=== PATIENT | male | born 1960 | race Caucasian/White ===

== ENCOUNTER 2021-05-24 17:30 | Inpatient (IN) | payer MEDICARE ==
[~2021-05-24] VITALS: Ht 172.7 cm; Wt 75.0 kg
[2021-05-24 17:15] VITALS: BP 129/59
[2021-05-24] MEDS ORDERED: CALCIUM CARBONATE 500 MG TAB.CHEW PO PRN (18:15)
[2021-05-24] MEDS ORDERED: ZOLPIDEM 5 MG TABLET. PO PRN (18:15)
[2021-05-24] MEDS ORDERED: ELECTROLYTE (NON-ICU) PROTOCOL. MC PRN (18:15)
[2021-05-24] MEDS ORDERED: PROCHLORPERAZINE 10 MG/2 ML VIAL. IVP PRN (18:15)
[2021-05-24] MEDS ORDERED: MORPHINE SULFATE 2 MG/ML INJ. IV PRN (18:15)
[2021-05-24] MEDS ORDERED: ACETAMINOPHEN 325 MG TABLET. PO PRN (18:15)
--- NOTE | 2021-05-24 18:40 | PDOC1 ---
History and Physical Date of Service: DOS: DATE: 05/24/21 TIME: 18:18 Chief Complaint: Problems: (1) SBO (small bowel obstruction) Chief Complain: Abdominal pain History of Present Illness: HPI: Patient 60-year-old white male presented center emergency room today due to abdominal pain and nausea vomiting for 3 days. Patient has a colostomy in place due to history of colorectal cancer status post colectomy reports has not had any ostomy output since Saturday. Has had worsening pain and distention. Patient does not recall any obstructions he has had to be hospitalized for, says every time he suspect he may have one it passes on its own. Regards to cancer history patient has not been on chemotherapy since 2018. Last radiation was June 2020. Has followed up at [facility] for surgery and oncology, interested in transferring care somewhere else. The outside emergency department today CT scan performed showed small bowel obstruction and transition point in the distal ileum. Suspect there is a nodule in the pelvic sidewall compressing the terminal ileum causing obstruction. CT scan also has handful of nodules throughout the patient is well aware of. When seen at bedside patient treatment says abdominal pain well controlled. Denies headache, dizziness, fever, chest pain, shortness of breath, dysuria, joint pain. Past Medical/Surgical History: PMH/PSH: Colorectal cancer Family History: Family History: Noncontributory Social History: Social History: Active smoker, occasional alcohol use marijuana use Current Medications: Current Medications Current Medications Ondansetron HCl (Zofran) 4 mg PRN Q6HRS PRN IVP NAUSEA/VOMITING; Start 05/24/21 at 18:15; Status UNV Prochlorperazine Edisylate (Compazine) 10 mg PRN Q6HRS PRN IVP NAUSEA/VOMITING; Start 05/24/21 at 18:15; Status UNV Calcium Carbonate/ Glycine (Tums) 500 mg PRN Q3HRS PRN PO UPSET STOMACH; Start 05/24/21 at 18:15; Status UNV Zolpidem Tartrate (Ambien) 5 mg PRN QHS PRN PO INSOMNIA, MAY REPEAT IN 1HR; Start 05/24/21 at 18:15; Status UNV Info (Non-Icu Electrolyte Protocol) 1 ea PRN DAILY PRN MC SEE COMMENTS; Start 05/24/21 at 18:15; Status UNV Morphine Sulfate (Morphine Sulfate) 1 mg PRN Q1HR PRN IV PAIN; Start 05/24/21 at 18:15; Status UNV Morphine Sulfate (Morphine Sulfate) 2 mg PRN Q1HR PRN IV PAIN; Start 05/24/21 at 18:15; Status UNV Acetaminophen (Tylenol) 650 mg PRN Q6HRS PRN PO Headaches, Temp > 101.5F; Start 05/24/21 at 18:15; Status UNV Senna/Docusate Sodium (Senna Plus) 1 tab BID PO ; Start 05/24/21 at 21:00; Status UNV Heparin Sodium (Porcine) (Heparin Sodium) 5,000 unit Q8HRS SQ ; Start 05/24/21 at 22:00; Status UNV ROS: Review of Systems Review of System Negative unless noted in HPI Physical Exam: Physcial Exam: GEN: No apparent distress. Alert and oriented HEENT: Normal cephalic, atraumatic, external auditory canals are patent EYES: Extraocular muscles are intact, pupil are equally round and reactive to light and accommodation MUSCULOSKELETAL: Well developed , well nourished, good range of motion ENDOCRINE: No thyromegaly was palpated LYMPHATICS: No cervical chain or axillary nodes were noted HEMATOPOIETIC: No bruising NECK: Supple, no JVD, no thyromegaly was noted LUNGS: Clear to auscultation in all lung hunter without rhonchi or wheezing HEART: RRR, S!, S2 present. Peripheral pulses intact, no obvious murmurs noted ABDOMEN: Ostomy present left lower quadrant with very minimal output if any. Tender throughout. Some distention. EXTREMITIES: Without clubbing, cyanosis, or edema. Pedal pulses intact. NEUROLOGIC: Normal speech and tone. A&O x 3, moves all extremities, no obvious focal deficits PSYCHIATRIC: Normal affect, normal mood. Stable SKIN: No ulcerations or rashes, good skin turgor, no jaundice VASCULAR: Good capillary refill, neurovascular bundle appears to be intact Labs: Labs: Labs from outside hospital reviewed. Notable for leukocytosis to 11.1, platelets 471. Creatinine of 1.5. Hypokalemia. Negative Alan rapid and PCR. Assessment/Plan Assessment/Plan Small bowel obstruction, history of colorectal cancer -Patient reports not eating any solid food for the past 3 days. No ostomy output since last Saturday. -History of colorectal cancer status post colostomy. Not currently on active chemo or radiation. -CT scan at outside hospital shows a nodule compressing the terminal ileum causing obstruction -NPO. Conservative with ice chips. -General surgery consulted -will hold off on oncology consultation for the moment until evaluated by surgery -Repeat labs ordered -IV fluids -DVT prophylaxis Justifications for Admission Other Justification JEAN BLAKELY MD May 24, 2021 18:40
[2021-05-24] MEDS ORDERED: IV NORMAL SALINE 1000ML BAG 1,000 ML IV ONE (18:45)
[2021-05-24 18:57] LABS: BASO % 1 % (0-3); EOS # 0.2 x10^3/uL (0.0-0.7); EOS % 3 % (0-3); HEMATOCRIT 42.5 % (39.0-53.0); HEMOGLOBIN 14.3 g/dL (13.0-17.5); LYMPH # 1.1 x10^3/uL (1.0-4.8); LYMPH % 13 % (24-48); MEAN CORPUSCULAR HEMOGLOBIN 32 pg (25-35); MEAN CORPUSCULAR HGB CONC 34 g/dL (31-37); MEAN CORPUSCULAR VOLUME 95 fL (79-100); MONO # 0.9 x10^3/uL (0.0-1.1); MONO % 11 % (0-9); NEUT # 6.3 x10^3/uL (1.8-7.7); NEUT % 74 % (31-73); PLATELET COUNT 345 x10^3/uL (140-400); RED BLOOD COUNT 4.47 x10^6/uL (4.30-5.70); WHITE BLOOD COUNT 8.5 x10^3/uL (4.0-11.0)
[2021-05-24 19:00] VITALS: BP 127/51
[2021-05-24 19:14] LABS: ALBUMIN 3.1 g/dL (3.4-5.0); ALBUMIN/GLOBULIN RATIO 0.8 (1.0-1.7); CALCIUM 8.4 mg/dL (8.5-10.1); CREATININE 1.3 mg/dL (0.7-1.3); GFR 56.5; POTASSIUM 3.8 mmol/L (3.5-5.1); TOTAL BILIRUBIN 0.6 mg/dL (0.2-1.0); TOTAL PROTEIN 6.8 g/dL (6.4-8.2)
[2021-05-24] MEDS: SENNOSIDES/DOCUSATE 8.6/50MG TABLET. PO SCH (21:00)
[2021-05-24] MEDS: HEPARIN for SUB-Q USE 5,000 UNIT/ML VIAL. SQ SCH (21:46)
[2021-05-24] MEDS: MORPHINE SULFATE 2 MG/ML INJ. IV PRN (21:48)
[2021-05-24] MEDS: ONDANSETRON PF 4 MG/2 ML VIAL. IVP PRN (21:48)
[2021-05-24 23:00] VITALS: BP 141/70
[2021-05-25 03:00] VITALS: BP 141/67
[2021-05-25] MEDS: HEPARIN for SUB-Q USE 5,000 UNIT/ML VIAL. SQ SCH ×3 (06:00→21:17)
[2021-05-25 07:00] VITALS: BP 149/73
[2021-05-25] MEDS: SENNOSIDES/DOCUSATE 8.6/50MG TABLET. PO SCH ×2 (07:31→21:17)
[2021-05-25 08:31] LABS: BILIRUBIN,URINE SMALL (NEG); CLARITY,URINE CLOUDY; COLOR,URINE YELLOW; NITRITE,URINE NEGATIVE (NEG); PH,URINE 6.5 (<5.0-8.0); PROTEIN,URINE 30 mg/dL (NEG-TRACE); UROBILINOGEN,URINE 0.2 mg/dL (0.2 mg/dL)
[2021-05-25] MEDS: MORPHINE SULFATE 2 MG/ML INJ. IV PRN (08:35)
[2021-05-25 08:46] LABS: RBC,URINE TNTC /HPF (0-2)
[2021-05-25 08:48] LABS: BACTERIA,URINE MODERATE /HPF (0-FEW)
--- NOTE | 2021-05-25 10:19 | NUR ---
[facility] following. Discussed with RN, pt from home with , room air, NPO. Surgery following. Pt has colorectal cancer. RN advised no SW needs at this time. [facility] will continue to follow. Addendum: 05/25/21 at [address] Mac contacted [facility] to request an inpatient transfer to for colorectal surgery and Urology. [facility] initiated transfer, faxed requested records and had images clouded from [facility]. Awaiting acceptance decision. Addendum: 05/25/21 at 1500 by ANTONIO KEMP declined to accept pt, stating pt needs to go to [facility] where he had the previous surgery. Dr. Mac notified.
[2021-05-25 11:00] VITALS: BP 153/59
--- NOTE | 2021-05-25 11:16 | PDOC ---
[employer] PROGRESS NOTE Date of Service DOS: DATE: 05/25/21 TIME: 11:13 Chief Complaint Chief Complaint Abdominal pain History of Present Illness History of Present Illness Patient 60-year-old white male presented center emergency room today due to abdominal pain and nausea vomiting for 3 days. Patient has a colostomy in place due to history of colorectal cancer status post colectomy reports has not had any ostomy output since Saturday. Has had worsening pain and distention. Patient does not recall any obstructions he has had to be hospitalized for, says every time he suspect he may have one it passes on its own. Regards to cancer history patient has not been on chemotherapy since 2018. Last radiation was June 2020. Has followed up at [facility] for surgery and oncology, interested in transferring care somewhere else. The outside emergency department today CT scan performed showed small bowel obstruction and transition point in the distal ileum. Suspect there is a nodule in the pelvic sidewall compressing the terminal ileum causing obstruction. CT scan also has handful of nodules throughout the patient is well aware of. When seen at bedside patient treatment says abdominal pain well controlled. Denies headache, dizziness, fever, chest pain, shortness of breath, dysuria, joint pain 05/25 Patient evaluated at bedside. Still with minimal ostomy output. Pain controlled. Surgery evaluation pending. No changews otherwise. Vitals/I&O Vitals/I&O: Vital Signs Date Time Temp Pulse Resp B/P (MAP) Pulse Ox O2 Delivery O2 Flow Rate FiO2 05/25/21 08:00 Room Air 05/25/21 07:00 97.5 47 18 149/73 (98) 96 97.5 I & O 05/24/21 05/24/21 05/25/21 15:00 23:00 07:00 Intake Total 60 ml 60 ml Balance 60 ml 60 ml Physical Exam General: Alert, Oriented X3, Cooperative Heart: Regular rate, Normal S1, Normal S2 Lungs: Clear Abdomen: Other (Diffusely tender, ostomy present in left lower quadrant) Extremities: No edema, Normal pulses Skin: No significant lesion Labs Labs: Laboratory Tests Test 05/24/21 18:40 05/25/21 07:45 White Blood Count 8.5 x10^3/uL (4.0-11.0) Red Blood Count 4.47 x10^6/uL (4.30-5.70) Hemoglobin 14.3 g/dL (13.0-17.5) Hematocrit 42.5 % (39.0-53.0) Mean Corpuscular Volume 95 fL (79-100) Mean Corpuscular Hemoglobin 32 pg (25-35) Mean Corpuscular Hemoglobin Concent 34 g/dL (31-37) Red Cell Distribution Width 14.0 % (11.5-14.5) Platelet Count 345 x10^3/uL (140-400) Neutrophils (%) (Auto) 74 % (31-73) Lymphocytes (%) (Auto) 13 % (24-48) Monocytes (%) (Auto) 11 % (0-9) Eosinophils (%) (Auto) 3 % (0-3) Basophils (%) (Auto) 1 % (0-3) Neutrophils # (Auto) 6.3 x10^3/uL (1.8-7.7) Lymphocytes # (Auto) 1.1 x10^3/uL (1.0-4.8) Monocytes # (Auto) 0.9 x10^3/uL (0.0-1.1) Eosinophils # (Auto) 0.2 x10^3/uL (0.0-0.7) Basophils # (Auto) 0.0 x10^3/uL (0.0-0.2) Sodium Level 139 mmol/L (136-145) Potassium Level 3.8 mmol/L (3.5-5.1) Chloride Level 101 mmol/L (98-107) Carbon Dioxide Level 31 mmol/L (21-32) Anion Gap 7 (6-14) Blood Urea Nitrogen 21 mg/dL (8-26) Creatinine 1.3 mg/dL (0.7-1.3) Estimated GFR (Cockcroft-Gault) 56.5 BUN/Creatinine Ratio 16 (6-20) Glucose Level 81 mg/dL (70-99) Lactic Acid Level 1.4 mmol/L (0.4-2.0) Calcium Level 8.4 mg/dL (8.5-10.1) Total Bilirubin 0.6 mg/dL (0.2-1.0) Aspartate Amino Transf (AST/SGOT) 18 U/L (15-37) Alanine Aminotransferase (ALT/SGPT) 22 U/L (16-63) Alkaline Phosphatase 77 U/L (46-116) Total Protein 6.8 g/dL (6.4-8.2) Albumin 3.1 g/dL (3.4-5.0) Albumin/Globulin Ratio 0.8 (1.0-1.7) Urine Collection Type Unknown Urine Color Yellow Urine Clarity Cloudy Urine pH 6.5 (<5.0-8.0) Urine Specific [place] 1.020 (1.000-1.030) Urine Protein 30 mg/dL (NEG-TRACE) Urine Glucose (UA) Negative mg/dL (NEG) Urine Ketones (Stick) >=80 mg/dL (NEG) Urine Blood Large (NEG) Urine Nitrite Negative (NEG) Urine Bilirubin Small (NEG) Urine Urobilinogen Dipstick 0.2 mg/dL (0.2 mg/dL) Urine Leukocyte Esterase Moderate (NEG) Urine RBC Tntc /HPF (0-2) Urine WBC 11-20 /HPF (0-4) Urine Bacteria Moderate /HPF (0-FEW) Urine Mucus Slight /LPF Assessment and Plan Assessmemt and Plan Small bowel obstruction, history of colorectal cancer -Patient reports not eating any solid food for the past 3 days. No ostomy output since last Saturday. -History of colorectal cancer status post colostomy. Not currently on active chemo or radiation. -CT scan at outside hospital shows a nodule compressing the terminal ileum causing obstruction -NPO. Conservative with ice chips. -General surgery consulted -will hold off on oncology consultation for the moment until evaluated by surgery -IV fluids -DVT prophylaxis Comment Review of Relevant I have reviewed the following items nori (where applicable) has been applied. Medications: Current Medications Medications (Trade) Dose Ordered Sig/Anne Route PRN Reason Start Time Stop Time Status Last Admin Dose Admin Ondansetron HCl (Zofran) 4 mg PRN Q6HRS PRN IVP NAUSEA/VOMITING 1ST CHOICE 05/24/21 18:15 05/24/21 21:48 Morphine Sulfate (Morphine Sulfate) 2 mg PRN Q1HR PRN IV SEVERE PAIN 7-10 05/24/21 18:15 05/25/21 08:35 Heparin Sodium (Porcine) (Heparin Sodium) 5,000 unit Q8HRS SQ 05/24/21 22:00 05/24/21 21:46 Sodium Chloride 1,000 ml @ 100 mls/hr 1X ONCE IV 05/24/21 18:45 05/25/21 04:44 DC 05/24/21 21:41 Justifications for Admission Other Justification JEAN BLAKELY MD May 25, 2021 11:16
--- NOTE | 2021-05-25 12:48 | PDOC2 ---
CONSULT Date of Consult Date of Consult DATE: 05/25/21 TIME: 12:39 History of Present Illness Reason for Visit: The patient is a 60 year old male with a complicated past surgical history. He states that in 2019 he underwent surgery at [facility] for colorectal cancer. At that time he was given a permanent colostomy. He reports that the surgery took over 9 hours and was complicated by a bladder injury which he states could not b e repaired. His recent follow up with his Oncologist at [facility] earlier this year showed concern for metastatic disease in the lungs. Over the last week the patient has been experiencing pain the left abdomen with recurrent vomiting and decreased ostomy output. He reported to [facility] and a CT described a small bowel obstruction with suspected metastatic implant in the left abdomen causing the obstruction. The CT also describes extensive soft tissue thickening in the perirectal region concerning for recurrent disease, numerous enlarged mesenteric lymph nodes, and left lower lobe pulmonary nodules that are concerning for metastatic disease. Past Medical History Past Medical History colorectal cancer Past Surgical History Past Surgical History Colorectal resection with colostomy Current Medications Current Medications Current Medications Ondansetron HCl (Zofran) 4 mg PRN Q6HRS PRN IVP NAUSEA/VOMITING 1ST CHOICE Last administered on 05/24/21at 21:48; Start 05/24/21 at 18:15 Prochlorperazine Edisylate (Compazine) 10 mg PRN Q6HRS PRN IVP NAUSEA/VOMITING 2ND CHOICE; Start 05/24/21 at 18:15 Calcium Carbonate/ Glycine (Tums) 500 mg PRN Q3HRS PRN PO UPSET STOMACH; Start 05/24/21 at 18:15 Zolpidem Tartrate (Ambien) 5 mg PRN QHS PRN PO INSOMNIA, MAY REPEAT IN 1HR; Start 05/24/21 at 18:15 Info (Non-Icu Electrolyte Protocol) 1 ea PRN DAILY PRN MC SEE COMMENTS; Start 05/24/21 at 18:15 Morphine Sulfate (Morphine Sulfate) 1 mg PRN Q1HR PRN IV MODERATE PAIN 4-6; Start 05/24/21 at 18:15 Morphine Sulfate (Morphine Sulfate) 2 mg PRN Q1HR PRN IV SEVERE PAIN 7-10 Last administered on 05/25/21at 08:35; Start 05/24/21 at 18:15 Acetaminophen (Tylenol) 650 mg PRN Q6HRS PRN PO Headaches, Temp > 101.5F; Start 05/24/21 at 18:15 Senna/Docusate Sodium (Senna Plus) 1 tab BID PO ; Start 05/24/21 at 21:00 Heparin Sodium (Porcine) (Heparin Sodium) 5,000 unit Q8HRS SQ Last administered on 05/24/21at 21:46; Start 05/24/21 at 22:00 Sodium Chloride 1,000 ml @ 100 mls/hr 1X ONCE IV Last administered on 05/24/21at 21:41; Start 05/24/21 at 18:45; Stop 05/25/21 at 04:44; Status DC Allergies Allergies: Coded Allergies: tree nut (Verified Allergy, Severe, 05/24/21) Penicillins (Verified Allergy, Intermediate, 05/24/21) ROS General: No: Chills, Night Sweats, Fatigue, Malaise, Appetite, Other PSYCHOLOGICAL ROS: No: Anxiety, Behavioral Disorder, Concentration difficultie, Decreased libido, Depression, Disorientation, Hallucinations, Hostility, Irrit ablity, Memory difficulties, Mood Swings, Obsessive thoughts, Physical abuse, Sexual abuse, Sleep disturbances, Suicidal ideation, Other HEENT: No: Heacaches, Visual Changes, Hearing change, Nasal congestion, Nasal discharge, Oral lesions, Sinus pain, Sore Throat, Epistaxis, Sneezing, Snoring, Tinnitus, Vertigo, Vocal changes, Other Hematological and Lymphatic: No: Bleeding Problems, Blood Clots, Blood Transfusions, Brusing, Night Sweats, Pallor, Swollen Lymph Nodes, Other ENDOCRINE: No: Breast Changes, Galactorrhea, Hair Pattern Changes, Hot Flashes, Malaise/lethargy, Mood Swings, Palpitations, Polydipsia/polyuria, Skin Changes, Temperature Intolerance, Unexpected Weight Changes, Other Cardiovascular: No Chest Pain, No Palpitations, No Orthopnea, No Paroxysmal Noc. Dyspnea, No Edema, No Lt Headedness, No Other Gastrointestinal: Yes Vomiting, Yes Abdominal Pain Neurological: No Behavorial Changes, No Bowel/Bladder ControlChng, No Confusion, No Dizziness, No Gait Disturbance, No Headaches, No Impaired Coord/balance, No Memory Loss, No Numbness/Tingling, No Seizures, No Speech Problems, No Tremors, No Visual Changes, No Weakness, No Other Skin: No Dry Skin, No Eczema, No Hair Changes, No Lumps, No Mole Changes, No M ottling, No Nail Changes, No Pruritus, No Rash, No Skin Lesion Changes, No Other, No Acne Physical Exam General: Alert, Oriented X3, Cooperative HEENT: Atraumatic Lungs: Clear to auscultation Abdomen: Soft (ostomy present in left abdomen) Extremities: No clubbing, No cyanosis Skin: No rashes Neuro: Normal speech Psych/Mental Status: Mental status NL Vitals VITALS Vital Signs Date Time Temp Pulse Resp B/P (MAP) Pulse Ox O2 Delivery O2 Flow Rate FiO2 05/25/21 11:00 97.6 51 18 153/59 (90) 96 Room Air 97.6 Labs Labs Laboratory Tests Test 05/24/21 18:40 05/25/21 07:45 White Blood Count 8.5 x10^3/uL (4.0-11.0) Red Blood Count 4.47 x10^6/uL (4.30-5.70) Hemoglobin 14.3 g/dL (13.0-17.5) Hematocrit 42.5 % (39.0-53.0) Mean Corpuscular Volume 95 fL (79-100) Mean Corpuscular Hemoglobin 32 pg (25-35) Mean Corpuscular Hemoglobin Concent 34 g/dL (31-37) Red Cell Distribution Width 14.0 % (11.5-14.5) Platelet Count 345 x10^3/uL (140-400) Neutrophils (%) (Auto) 74 % (31-73) Lymphocytes (%) (Auto) 13 % (24-48) Monocytes (%) (Auto) 11 % (0-9) Eosinophils (%) (Auto) 3 % (0-3) Basophils (%) (Auto) 1 % (0-3) Neutrophils # (Auto) 6.3 x10^3/uL (1.8-7.7) Lymphocytes # (Auto) 1.1 x10^3/uL (1.0-4.8) Monocytes # (Auto) 0.9 x10^3/uL (0.0-1.1) Eosinophils # (Auto) 0.2 x10^3/uL (0.0-0.7) Basophils # (Auto) 0.0 x10^3/uL (0.0-0.2) Sodium Level 139 mmol/L (136-145) Potassium Level 3.8 mmol/L (3.5-5.1) Chloride Level 101 mmol/L (98-107) Carbon Dioxide Level 31 mmol/L (21-32) Anion Gap 7 (6-14) Blood Urea Nitrogen 21 mg/dL (8-26) Creatinine 1.3 mg/dL (0.7-1.3) Estimated GFR (Cockcroft-Gault) 56.5 BUN/Creatinine Ratio 16 (6-20) Glucose Level 81 mg/dL (70-99) Lactic Acid Level 1.4 mmol/L (0.4-2.0) Calcium Level 8.4 mg/dL (8.5-10.1) Total Bilirubin 0.6 mg/dL (0.2-1.0) Aspartate Amino Transf (AST/SGOT) 18 U/L (15-37) Alanine Aminotransferase (ALT/SGPT) 22 U/L (16-63) Alkaline Phosphatase 77 U/L (46-116) Total Protein 6.8 g/dL (6.4-8.2) Albumin 3.1 g/dL (3.4-5.0) Albumin/Globulin Ratio 0.8 (1.0-1.7) Urine Collection Type Unknown Urine Color Yellow Urine Clarity Cloudy Urine pH 6.5 (<5.0-8.0) Urine Specific [employer] 1.020 (1.000-1.030) Urine Protein 30 mg/dL (NEG-TRACE) Urine Glucose (UA) Negative mg/dL (NEG) Urine Ketones (Stick) >=80 mg/dL (NEG) Urine Blood Large (NEG) Urine Nitrite Negative (NEG) Urine Bilirubin Small (NEG) Urine Urobilinogen Dipstick 0.2 mg/dL (0.2 mg/dL) Urine Leukocyte Esterase Moderate (NEG) Urine RBC Tntc /HPF (0-2) Urine WBC 11-20 /HPF (0-4) Urine Bacteria Moderate /HPF (0-FEW) Urine Mucus Slight /LPF Laboratory Tests Test 05/24/21 18:40 05/25/21 07:45 White Blood Count 8.5 x10^3/uL (4.0-11.0) Red Blood Count 4.47 x10^6/uL (4.30-5.70) Hemoglobin 14.3 g/dL (13.0-17.5) Hematocrit 42.5 % (39.0-53.0) Mean Corpuscular Volume 95 fL (79-100) Mean Corpuscular Hemoglobin 32 pg (25-35) Mean Corpuscular Hemoglobin Concent 34 g/dL (31-37) Red Cell Distribution Width 14.0 % (11.5-14.5) Platelet Count 345 x10^3/uL (140-400) Neutrophils (%) (Auto) 74 % (31-73) Lymphocytes (%) (Auto) 13 % (24-48) Monocytes (%) (Auto) 11 % (0-9) Eosinophils (%) (Auto) 3 % (0-3) Basophils (%) (Auto) 1 % (0-3) Neutrophils # (Auto) 6.3 x10^3/uL (1.8-7.7) Lymphocytes # (Auto) 1.1 x10^3/uL (1.0-4.8) Monocytes # (Auto) 0.9 x10^3/uL (0.0-1.1) Eosinophils # (Auto) 0.2 x10^3/uL (0.0-0.7) Basophils # (Auto) 0.0 x10^3/uL (0.0-0.2) Sodium Level 139 mmol/L (136-145) Potassium Level 3.8 mmol/L (3.5-5.1) Chloride Level 101 mmol/L (98-107) Carbon Dioxide Level 31 mmol/L (21-32) Anion Gap 7 (6-14) Blood Urea Nitrogen 21 mg/dL (8-26) Creatinine 1.3 mg/dL (0.7-1.3) Estimated GFR (Cockcroft-Gault) 56.5 BUN/Creatinine Ratio 16 (6-20) Glucose Level 81 mg/dL (70-99) Lactic Acid Level 1.4 mmol/L (0.4-2.0) Calcium Level 8.4 mg/dL (8.5-10.1) Total Bilirubin 0.6 mg/dL (0.2-1.0) Aspartate Amino Transf (AST/SGOT) 18 U/L (15-37) Alanine Aminotransferase (ALT/SGPT) 22 U/L (16-63) Alkaline Phosphatase 77 U/L (46-116) Total Protein 6.8 g/dL (6.4-8.2) Albumin 3.1 g/dL (3.4-5.0) Albumin/Globulin Ratio 0.8 (1.0-1.7) Urine Collection Type Unknown Urine Color Yellow Urine Clarity Cloudy Urine pH 6.5 (<5.0-8.0) Urine Specific [employer] 1.020 (1.000-1.030) Urine Protein 30 mg/dL (NEG-TRACE) Urine Glucose (UA) Negative mg/dL (NEG) Urine Ketones (Stick) >=80 mg/dL (NEG) Urine Blood Large (NEG) Urine Nitrite Negative (NEG) Urine Bilirubin Small (NEG) Urine Urobilinogen Dipstick 0.2 mg/dL (0.2 mg/dL) Urine Leukocyte Esterase Moderate (NEG) Urine RBC Tntc /HPF (0-2) Urine WBC 11-20 /HPF (0-4) Urine Bacteria Moderate /HPF (0-FEW) Urine Mucus Slight /LPF Assessment/Plan Assessment/Plan 60 year old male with history of colorectal cancer S/P resection, complicated by bladder injury, currently with suspected recurrent/metastatic disease with small bowel obstruction. His situation is very complex and the exact nature of his prior surgery is not known. A bowel obstruction from recurrent/metastatic abdominal cancer is a challenge which in some cases does not have a surgical fix. Recommend transfer to a facility with Colorectal Surgery or Surgical Onc specialty and Urology services. The patient is adamant about not returning to [facility], but is open to transfer to . PRE VILLEDA MD May 25, 2021 12:48
[2021-05-25 14:46] VITALS: BP 135/71
[2021-05-25] MEDS: IV NORMAL SALINE 1000ML BAG 1,000 ML IV SCH (16:15)
[2021-05-25 19:30] VITALS: BP 156/73
[2021-05-25 23:14] VITALS: BP 148/89
[2021-05-26] MEDS: SENNOSIDES/DOCUSATE 8.6/50MG TABLET. PO SCH ×3 (00:22→20:32)
[2021-05-26] MEDS: MORPHINE SULFATE 2 MG/ML INJ. IV PRN (00:23)
[2021-05-26] MEDS: ONDANSETRON PF 4 MG/2 ML VIAL. IVP PRN (00:23)
[2021-05-26 03:37] VITALS: BP 138/88
[2021-05-26] MEDS: HEPARIN for SUB-Q USE 5,000 UNIT/ML VIAL. SQ SCH ×3 (05:55→20:14)
[2021-05-26 07:15] VITALS: BP 150/77
--- NOTE | 2021-05-26 08:43 | PDOC2 ---
CONSULT Date of Consult Date of Consult DATE: 05/26/21 TIME: 08:38 Reason for Consult Reason for Consult: Metastatic colon cancer Referring Physician Referring Physician: Dr. Keys Identification/Chief Complaint Chief Complaint Abdominal pain Source Source: Chart review, Patient History of Present Illness Reason for Visit: Carlos Bennett is a 60-year-old male who has been admitted to [facility] with small bowel obstruction. Patient reports recent onset abdominal pain that has gradually worsened with associated nausea and vomiting. He went to the emergency room at [facility]. He received further evaluation with CT abdomen and pelvis which showed a small bowel obstruction with transition point at the distal ileum just proximal to the ileocecal valve. A soft tissue nodule was noted in the pelvis causing obstruction. This is suspected to be recurrent rectal cancer. He does have a history of rectal c ancer for which he received chemoradiotherapy. CT also showed rectal wall thickening, mesenteric lymph nodes as well as vague hypoattenuating lesion in the right hepatic lobe measuring 1.[address] also showed left lower lobe pulmonary nodules. These findings were all reported to be concerning for metastatic disease. He has been seen by Dr. Keys here in [facility]. Due to complicated surgical history of prior colorectal cancer which was complicated by bladder injury, transferred to a facility with colorectal surgery our surgical oncology and urology expertise was recommended. The patient did not want to return to [facility] due to satisfaction with prior care that was provided. Transfer to [facility] has been recommended but this was declined by at [facility] given all of the patient's prior surgical care was performed at [facility]. Carlos reports that he first noticed bloody stools in 2017. He did not have insurance at that time. He reports signing up for insurance on the [employer] portal in 2018 and establish care at [facility]. He received a colonoscopy which showed rectal cancer. He reports having had concurrent chemoradiotherapy under the care of Dr. Williams Giles and Dr. Lizzy Whaley. He was subsequently taken to the operating room by Dr. Sagastume. Per patient's report, he suffered accidental bladder trauma during the procedure for which he saw a urologist subsequently and the conduit was established in the bladder and rectal vault. He also has a colostomy at this time. He reports losing insurance subsequently. He recently signed up for Medicare. He saw Dr. Giles approximately 1 month ago and restaging scan showed pulmonary nodules a liver nodule and pelvic nodule. He reports having SBRT to the pulmonary and liver nodules but not of the pelvic nodule. Current Medications Current Medications Current Medications Ondansetron HCl (Zofran) 4 mg PRN Q6HRS PRN IVP NAUSEA/VOMITING 1ST CHOICE Last administered on 05/26/21at 00:23; Start 05/24/21 at 18:15 Prochlorperazine Edisylate (Compazine) 10 mg PRN Q6HRS PRN IVP NAUSEA/VOMITING 2ND CHOICE; Start 05/24/21 at 18:15 Calcium Carbonate/ Glycine (Tums) 500 mg PRN Q3HRS PRN PO UPSET STOMACH; Start 05/24/21 at 18:15 Zolpidem Tartrate (Ambien) 5 mg PRN QHS PRN PO INSOMNIA, MAY REPEAT IN 1HR; Start 05/24/21 at 18:15 Info (Non-Icu Electrolyte Protocol) 1 ea PRN DAILY PRN MC SEE COMMENTS; Start 05/24/21 at 18:15 Morphine Sulfate (Morphine Sulfate) 1 mg PRN Q1HR PRN IV MODERATE PAIN 4-6; Start 05/24/21 at 18:15 Morphine Sulfate (Morphine Sulfate) 2 mg PRN Q1HR PRN IV SEVERE PAIN 7-10 Last administered on 05/26/21at 00:23; Start 05/24/21 at 18:15 Acetaminophen (Tylenol) 650 mg PRN Q6HRS PRN PO Headaches, Temp > 101.5F; Start 05/24/21 at 18:15 Senna/Docusate Sodium (Senna Plus) 1 tab BID PO Last administered on 05/26/21at 00:22; Start 05/24/21 at 21:00 Heparin Sodium (Porcine) (Heparin Sodium) 5,000 unit Q8HRS SQ Last administered on 05/24/21at 21:46; Start 05/24/21 at 22:00 Sodium Chloride 1,000 ml @ 100 mls/hr 1X ONCE IV Last administered on 05/24/21at 21:41; Start 05/24/21 at 18:45; Stop 05/25/21 at 04:44; Status DC Sodium Chloride 1,000 ml @ 50 mls/hr Q20H IV Last administered on 05/25/21at 16:15; Start 05/25/21 at 16:15 Allergies Allergies: Coded Allergies: tree nut (Verified Allergy, Severe, 05/24/21) Penicillins (Verified Allergy, Intermediate, 05/24/21) ROS Review of System Negative unless stated otherwise in HPI Physical Exam Physical Exam General: Awake, alert, no distress Head: Atraumatic, no conjunctival icterus, normal oral cavity mucosa Neck: Supple, no lymphadenopathy Chest: No trauma noted Cardiovascular: Regular rhythm, normal rate, no murmurs Respiratory: Bilateral air entry noted, lungs clear to auscultation bilaterally. No accessory muscle use Abdominal: Abdomen is distended. Colostomy noted. Musculoskeletal: No deformity noted Extremities: No edema noted Skin: No rash or lesions Neurologic: Alert and oriented x3, no grossly evident neurologic deficits noted. Full neurological exam was not performed Psychiatric: Appropriate mood and affect Vitals VITALS Vital Signs Date Time Temp Pulse Resp B/P (MAP) Pulse Ox O2 Delivery O2 Flow Rate FiO2 05/26/21 07:56 Room Air 05/26/21 07:15 97.4 56 20 150/77 (101) 96 97.4 Labs Labs Laboratory Tests Test 05/24/21 18:40 05/25/21 07:45 05/25/21 13:20 White Blood Count 8.5 x10^3/uL (4.0-11.0) Red Blood Count 4.47 x10^6/uL (4.30-5.70) Hemoglobin 14.3 g/dL (13.0-17.5) Hematocrit 42.5 % (39.0-53.0) Mean Corpuscular Volume 95 fL (79-100) Mean Corpuscular Hemoglobin 32 pg (25-35) Mean Corpuscular Hemoglobin Concent 34 g/dL (31-37) Red Cell Distribution Width 14.0 % (11.5-14.5) Platelet Count 345 x10^3/uL (140-400) Neutrophils (%) (Auto) 74 % (31-73) Lymphocytes (%) (Auto) 13 % (24-48) Monocytes (%) (Auto) 11 % (0-9) Eosinophils (%) (Auto) 3 % (0-3) Basophils (%) (Auto) 1 % (0-3) Neutrophils # (Auto) 6.3 x10^3/uL (1.8-7.7) Lymphocytes # (Auto) 1.1 x10^3/uL (1.0-4.8) Monocytes # (Auto) 0.9 x10^3/uL (0.0-1.1) Eosinophils # (Auto) 0.2 x10^3/uL (0.0-0.7) Basophils # (Auto) 0.0 x10^3/uL (0.0-0.2) Sodium Level 139 mmol/L (136-145) Potassium Level 3.8 mmol/L (3.5-5.1) Chloride Level 101 mmol/L (98-107) Carbon Dioxide Level 31 mmol/L (21-32) Anion Gap 7 (6-14) Blood Urea Nitrogen 21 mg/dL (8-26) Creatinine 1.3 mg/dL (0.7-1.3) Estimated GFR (Cockcroft-Gault) 56.5 BUN/Creatinine Ratio 16 (6-20) Glucose Level 81 mg/dL (70-99) Lactic Acid Level 1.4 mmol/L (0.4-2.0) Calcium Level 8.4 mg/dL (8.5-10.1) Total Bilirubin 0.6 mg/dL (0.2-1.0) Aspartate Amino Transf (AST/SGOT) 18 U/L (15-37) Alanine Aminotransferase (ALT/SGPT) 22 U/L (16-63) Alkaline Phosphatase 77 U/L (46-116) Total Protein 6.8 g/dL (6.4-8.2) Albumin 3.1 g/dL (3.4-5.0) Albumin/Globulin Ratio 0.8 (1.0-1.7) Urine Collection Type Unknown Urine Color Yellow Urine Clarity Cloudy Urine pH 6.5 (<5.0-8.0) Urine Specific [place] 1.020 (1.000-1.030) Urine Protein 30 mg/dL (NEG-TRACE) Urine Glucose (UA) Negative mg/dL (NEG) Urine Ketones (Stick) >=80 mg/dL (NEG) Urine Blood Large (NEG) Urine Nitrite Negative (NEG) Urine Bilirubin Small (NEG) Urine Urobilinogen Dipstick 0.2 mg/dL (0.2 mg/dL) Urine Leukocyte Esterase Moderate (NEG) Urine RBC Tntc /HPF (0-2) Urine WBC 11-20 /HPF (0-4) Urine Bacteria Moderate /HPF (0-FEW) Urine Mucus Slight /LPF SARS-CoV-2 RNA (EFRAIN) Negative (Negative) Laboratory Tests Test 05/25/21 13:20 SARS-CoV-2 RNA (EFRAIN) Negative (Negative) Assessment/Plan Assessment/Plan Assessment: Rectal cancer, [place] NX M1 with liver, pulmonary and peritoneal nodules Small bowel obstruction secondary to malignant pelvic mass Abdominal pain secondary to the above History of bladder trauma during surgery Recommendation: -Continue supportive care for SBO -Defer to Dr. Keys regarding disposition for surgical management. Reasonable to plan transfer to facility with urologic and surgical oncology availability -I discussed with the patient that given decline for transfer from , he may consider transfer to [facility] in consultation with a different surgeon if he prefers to have a second opinion -We discussed that given advanced colon cancer with obstruction, palliative systemic therapy is reasonable after resolution of ongoing small bowel obstruction -No additional inpatient hematology/oncology work-up required. We will follow peripherally. Please call with any questions Zhou Vyas MD Medical Oncology/Hematology Ph: [phone] NICOLE VYAS MD May 26, 2021 08:43
--- NOTE | 2021-05-26 09:26 | PDOC ---
SURGICAL PROGRESS NOTE DATE: 05/26/21 TIME: 09:25 Subjective vomiting wants to have liquids, despite vomiting pain agreeable to [facility] Vital Signs Vital Signs Date Time Temp Pulse Resp B/P (MAP) Pulse Ox O2 Delivery O2 Flow Rate FiO2 05/26/21 07:56 Room Air 05/26/21 07:15 97.4 56 20 150/77 (101) 96 97.4 I&O Intake and Output 05/26/21 06:59 Intake Total 50 ml Output Total 2101 ml Balance -2051 ml Intake Oral 50 ml Output Urine Total 750 ml Urine/Stool Mix 1 ml Emesis 1350 ml General: Cooperative, No acute distress Abdomen: Soft Labs Laboratory Tests Test 05/24/21 18:40 05/25/21 07:45 05/25/21 13:20 White Blood Count 8.5 x10^3/uL (4.0-11.0) Red Blood Count 4.47 x10^6/uL (4.30-5.70) Hemoglobin 14.3 g/dL (13.0-17.5) Hematocrit 42.5 % (39.0-53.0) Mean Corpuscular Volume 95 fL (79-100) Mean Corpuscular Hemoglobin 32 pg (25-35) Mean Corpuscular Hemoglobin Concent 34 g/dL (31-37) Red Cell Distribution Width 14.0 % (11.5-14.5) Platelet Count 345 x10^3/uL (140-400) Neutrophils (%) (Auto) 74 % (31-73) Lymphocytes (%) (Auto) 13 % (24-48) Monocytes (%) (Auto) 11 % (0-9) Eosinophils (%) (Auto) 3 % (0-3) Basophils (%) (Auto) 1 % (0-3) Neutrophils # (Auto) 6.3 x10^3/uL (1.8-7.7) Lymphocytes # (Auto) 1.1 x10^3/uL (1.0-4.8) Monocytes # (Auto) 0.9 x10^3/uL (0.0-1.1) Eosinophils # (Auto) 0.2 x10^3/uL (0.0-0.7) Basophils # (Auto) 0.0 x10^3/uL (0.0-0.2) Sodium Level 139 mmol/L (136-145) Potassium Level 3.8 mmol/L (3.5-5.1) Chloride Level 101 mmol/L (98-107) Carbon Dioxide Level 31 mmol/L (21-32) Anion Gap 7 (6-14) Blood Urea Nitrogen 21 mg/dL (8-26) Creatinine 1.3 mg/dL (0.7-1.3) Estimated GFR (Cockcroft-Gault) 56.5 BUN/Creatinine Ratio 16 (6-20) Glucose Level 81 mg/dL (70-99) Lactic Acid Level 1.4 mmol/L (0.4-2.0) Calcium Level 8.4 mg/dL (8.5-10.1) Total Bilirubin 0.6 mg/dL (0.2-1.0) Aspartate Amino Transf (AST/SGOT) 18 U/L (15-37) Alanine Aminotransferase (ALT/SGPT) 22 U/L (16-63) Alkaline Phosphatase 77 U/L (46-116) Total Protein 6.8 g/dL (6.4-8.2) Albumin 3.1 g/dL (3.4-5.0) Albumin/Globulin Ratio 0.8 (1.0-1.7) Urine Collection Type Unknown Urine Color Yellow Urine Clarity Cloudy Urine pH 6.5 (<5.0-8.0) Urine Specific [place] 1.020 (1.000-1.030) Urine Protein 30 mg/dL (NEG-TRACE) Urine Glucose (UA) Negative mg/dL (NEG) Urine Ketones (Stick) >=80 mg/dL (NEG) Urine Blood Large (NEG) Urine Nitrite Negative (NEG) Urine Bilirubin Small (NEG) Urine Urobilinogen Dipstick 0.2 mg/dL (0.2 mg/dL) Urine Leukocyte Esterase Moderate (NEG) Urine RBC Tntc /HPF (0-2) Urine WBC 11-20 /HPF (0-4) Urine Bacteria Moderate /HPF (0-FEW) Urine Mucus Slight /LPF SARS-CoV-2 RNA (EFRAIN) Negative (Negative) Laboratory Tests Test 05/25/21 13:20 SARS-CoV-2 RNA (EFRAIN) Negative (Negative) Assessment/Plan awaiting plans for transfer where colorectal and urology services are available Justicifation of Admission Dx: Justifications for Admission: Justification of Admission Dx: Yes Comments: bowel obstruction SHADI JERONIMO APRN May 26, 2021 09:26
[2021-05-26 10:45] VITALS: BP 159/81
[2021-05-26] MEDS: IV NORMAL SALINE 1000ML BAG 1,000 ML IV SCH (10:53)
--- NOTE | 2021-05-26 11:03 | NUR ---
VIRIDIANA following. Discussed with RN, pt agreeable to transfer to [facility]. VIRIDIANA initiated referral and faxed requested documents. Awaiting acceptance decision. VIRDIIANA will continue to follow. Addendum: 05/26/21 at [address] [facility] denied transfer. Dr. Mac speaking with [facility] surgeon.
--- NOTE | 2021-05-26 11:34 | PDOC ---
[facility] PROGRESS NOTE Date of Service DOS: DATE: 05/26/21 TIME: 11:33 Chief Complaint Chief Complaint Abdominal pain History of Present Illness History of Present Illness Patient 60-year-old white male presented center emergency room today due to abdominal pain and nausea vomiting for 3 days. Patient has a colostomy in place due to history of colorectal cancer status post colectomy reports has not had any ostomy output since Saturday. Has had worsening pain and distention. Patient does not recall any obstructions he has had to be hospitalized for, says every time he suspect he may have one it passes on its own. Regards to cancer history patient has not been on chemotherapy since 2018. Last radiation was June 2020. Has followed up at [facility] for surgery and oncology, interested in transferring care somewhere else. The outside emergency department today CT scan performed showed small bowel obstruction and transition point in the distal ileum. Suspect there is a nodule in the pelvic sidewall compressing the terminal ileum causing obstruction. CT scan also has handful of nodules throughout the patient is well aware of. When seen at bedside patient treatment says abdominal pain well controlled. Denies headache, dizziness, fever, chest pain, shortness of breath, dysuria, joint pain 05/25 Patient evaluated at bedside. Still with minimal ostomy output. Pain controlled. Surgery evaluation pending. No changews otherwise. 05/26 Seen at bedside. No major clinical changes. Pain controlled. Agreeable to [facility] transfer. Denied by [facility]. Vitals/I&O Vitals/I&O: Vital Signs Date Time Temp Pulse Resp B/P (MAP) Pulse Ox O2 Delivery O2 Flow Rate FiO2 05/26/21 10:45 97.8 64 18 159/81 (107) 95 Room Air 97.8 I & O 05/25/21 05/25/21 05/26/21 15:00 23:00 07:00 Intake Total 0 ml 0 ml 50 ml Output Total 350 ml 1551 ml 200 ml Balance -350 ml -1551 ml -150 ml Physical Exam General: Cooperative, No acute distress Heart: Regular rate, Normal S1, Normal S2 Lungs: Clear Abdomen: Soft Extremities: No clubbing, No cyanosis Skin: No rashes Labs Labs: Laboratory Tests Test 05/25/21 13:20 SARS-CoV-2 RNA (EFRAIN) Negative (Negative) Assessment and Plan Assessmemt and Plan Small bowel obstruction, history of colorectal cancer -Patient reports not eating any solid food for the past 3 days. No ostomy output since last Saturday. -History of colorectal cancer status post colostomy. Not currently on active chemo or radiation. -CT scan at outside hospital shows a nodule compressing the terminal ileum causing obstruction -NPO. Conservative with ice chips. -General surgery consultedry -IV fluids -DVT prophylaxis Comment Review of Relevant I have reviewed the following items nori (where applicable) has been applied. Medications: Current Medications Medications (Trade) Dose Ordered Sig/Anne Route PRN Reason Start Time Stop Time Status Last Admin Dose Admin Sodium Chloride 1,000 ml @ 50 mls/hr Q20H IV 05/25/21 16:15 05/26/21 10:53 Justifications for Admission Other Justification JEAN BLAKELY MD May 26, 2021 11:34
[2021-05-26 15:00] VITALS: BP 140/61
[2021-05-26 19:00] VITALS: BP 141/81
[2021-05-26 23:00] VITALS: BP 137/84
[2021-05-27 03:00] VITALS: BP 128/76
--- NOTE | 2021-05-27 03:29 | NUR ---
patient is non-compliant,has been taking ice chips in significant amount of oral intake. RN has been constantly re educating patient of NPO status but patient insisted it is okay for him since it's liquid and he void it anyway. Patient also stated that after the current IVF ,he wants it stopped as he is hydrated enough. Again patient was re educated but still insisted on stopping IVF.
[2021-05-27] MEDS: HEPARIN for SUB-Q USE 5,000 UNIT/ML VIAL. SQ SCH (06:00)
[2021-05-27 07:00] VITALS: BP 144/84
[2021-05-27] MEDS: IV NORMAL SALINE 1000ML BAG 1,000 ML IV SCH (07:53)
[2021-05-27] MEDS: SENNOSIDES/DOCUSATE 8.6/50MG TABLET. PO SCH (07:58)
--- NOTE | 2021-05-27 10:25 | PDOC3 ---
[facility]-Discharge Summary Date of Admission: Date of Admission: May 24, 2021 Date of Discharge: Date of Discharge: May 27, 2021 Admission Diagnosis: Problems: (1) SBO (small bowel obstruction) Discharge Diagnosis: Discharge Diagnosis: Same Consults: Consults: Oncology, Surgery Hospital Course: Hospital Course: History of Present Illness Patient 60-year-old white male presented center emergency room today due to abdominal pain and nausea vomiting for 3 days. Patient has a colostomy in place due to history of colorectal cancer status post colectomy reports has not had any ostomy output since Saturday. Has had worsening pain and distention. Patient does not recall any obstructions he has had to be hospitalized for, says every time he suspect he may have one it passes on its own. Regards to cancer history patient has not been on chemotherapy since 2018. Last radiation was June 2020. Has followed up at [facility] for surgery and oncology, interested in transferring care somewhere else. The outside emergency department today CT scan performed showed small bowel obstruction and transition point in the distal ileum. Suspect there is a nodule in the pelvic sidewall compressing the terminal ileum causing obstruction. CT scan also has handful of nodules throughout the patient is well aware of. When seen at bedside patient treatment says abdominal pain well controlled. Denies headache, dizziness, fever, chest pain, shortness of breath, dysuria, joint pain 05/25 Patient evaluated at bedside. Still with minimal ostomy output. Pain controlled. Surgery evaluation pending. No changews otherwise. 05/26 Seen at bedside. No major clinical changes. Pain controlled. Agreeable to [facility] transfer. Denied by [facility]. Spent approximate 2 hours on the phone with [facility] throughout the day discussing with their transfer physician. Was informed by her that their surgeons reviewed his imaging and were not willing to operate, recommending palliative options and are unwilling to accept the patient. Was informed that they would only take the patient if his bowel perforated. They also suggested considering a G-tube, I asked how this would resolve an obstruction caused by a mass, did not receive an answer. Asked their transfer team to run this case by patient's oncologist. They also denied saying no indication for inpatient admission from their perspective. 05/27 Evaluated patient at bedside, informed him of [facility] decision and our discussions yesterday. We really do not have anything else to offer the patient at this point and he understood. He was agreeable for discharge today. Said he will likely go to the emergency room at and hope they will be willing to accept him for his bowel obstruction. Informed him they may also recommend going to [facility] but patient is adamant about not going back there. Disposition: Disposition/Orders: D/C to Home Activity: Activity: Resume previous activity Diet: Diet: NPO Medications: Home Meds No Active Prescriptions or Reported Meds No Active Prescriptions or Reported Meds Justicifation of Admission Dx: Justifications for Admission: Justification of Admission Dx: Yes JEAN BLAKELY MD May 27, 2021 10:25
[2021-05-27] MEDS ORDERED: HEPARIN PF 500 UNIT/5 ML DISP.SYRIN. IVP ONE (10:45)
--- NOTE | 2021-05-27 12:00 | NUR ---
Pt discharged home at 1100. Stated that his ride was around the corner and he will wait for them outside. Pt still here at this time walking around outside. Call placed with number that is on the board spoke with his son Geronimo at [phone], he said that someone is on the way to pick him up now.
== END 2021-05-27 11:00 | disposition home or self-care (01) | DRG 389 ==
LOC: 4 NORTH 17:30
PROVIDERS: ADMIT Internal Medicine; ATTEND Internal Medicine
DX: K56.609 Unspecified intestinal obstruction, unspecified as to partial versus complete obstruction (principal); C19 Malignant neoplasm of rectosigmoid junction; F17.200 Nicotine dependence, unspecified, uncomplicated; Z20.822 Contact with and (suspected) exposure to COVID-19; R19.00 Intra-abdominal and pelvic swelling, mass and lump, unspecified site; Z90.49 Acquired absence of other specified parts of digestive tract; Z93.3 Colostomy status; Z92.3 Personal history of irradiation; Z88.0 Allergy status to penicillin; Z91.018 Allergy to other foods; Z92.21 Personal history of antineoplastic chemotherapy
CPT/HCPCS: 36415; 80053; 81001; 83605; 85025; 87086; J1642; J1644; J2270; J2405; J7030; U0003; U0005; G0378

== ENCOUNTER 2022-01-02 20:19 | Inpatient (IN) | payer MEDICARE ==
[~2022-01-02] VITALS: Ht 175.3 cm; Wt 53.6 kg
[2022-01-02 20:15] VITALS: BP 124/80
--- NOTE | 2022-01-02 20:15 | NUR ---
Admit to 410. Abd firm and distended. No BM from colostomy x10 days per pt. Losing weight.
[2022-01-02] MEDS ORDERED: MORPHINE SULFATE 10 MG/ML VIAL. IVP PRN (20:45)
[2022-01-02] MEDS ORDERED: fentaNYL PF VIAL 100 MCG/2 ML VIAL IVP PRN (20:45)
--- NOTE | 2022-01-02 20:53 | PDOC1 ---
History and Physical Date of Admission Date of Admission DATE: 01/02/22 TIME: 20:41 Identification/Chief Complaint Chief Complaint Abdominal pain, abdominal distention Source Source: Patient History of Present Illness History of Present Illness Patient is a 61-year-old male with past medical history colorectal cancer with metastasis, SBO s/p colectomy, who presents as a transfer from [facility] due to SBO. Patient has a colostomy bag secondary to his history of SBO with colectomy, and noted decreased output over the past 10 days. Associated abdominal distention, nausea, and vomiting. His initial work-up at [facility] showed WBC 10.1, hemoglobin 12.0, hematocrit 36.1, platelets 644, sodium 135, albumin 2.5. CT abdomen/pelvis showed SBO with numerous dilated loops of small bowel, and innumerable hypoattenuating masses throughout the liver and lung. General surgery was consulted from [facility] and recommended transfer to [facility] for further medical care. Past Medical History Past Medical History Colorectal cancer with metastasis, SBO Past Surgical History Past Surgical History Colectomy Family History Family History: Cancer Social History Smoke: 1 pack per day ALCOHOL: none Drugs: Marijuana Current Medications Current Medications Current Medications Morphine Sulfate (Morphine Sulfate) 5 mg PRN Q2HRS PRN IVP PAIN; Start 01/02/22 at 20:45; Status UNV Fentanyl Citrate (Fentanyl 2ml Vial) 50 mcg PRN Q2HR PRN IVP PAIN; Start 01/02/22 at 20:45; Status UNV Sodium Chloride 1,000 ml @ 100 mls/hr Q10H IV ; Start 01/02/22 at 20:45; Status UNV Ondansetron HCl (Zofran) 4 mg PRN Q6HRS PRN IVP NAUSEA/VOMITING; Start 01/02/22 at 20:45; Status UNV Heparin Sodium (Porcine) (Heparin Sodium) 5,000 unit Q8HRS SQ ; Start 01/02/22 at 22:00; Status UNV Active Scripts Active No Active Prescriptions or Reported Medications Allergies Allergies: Coded Allergies: tree nut (Verified Allergy, Severe, 05/24/21) Penicillins (Verified Allergy, Intermediate, 05/24/21) ROS Review of System GENERAL: No history of weight change, weakness or fevers. SKIN: No bruising, hair changes or rashes. EYES: No blurred, double or loss of vision. NOSE AND THROAT: No history of nosebleeds, hoarseness or sore throat. HEART: Denies chest pain, denies palpitations. LUNGS: Denies cough, hemoptysis, wheezing or shortness of breath. GASTROINTESTINAL: Abdominal pain, distention, nausea, vomiting. GENITOURINARY: Denies dysuria, frequency, urgency, hematuria. NEUROLOGIC: Denies history of numbness, tingling, tremor or weakness. PSYCHIATRIC: Denies anxiety, denies depression. ENDOCRINE: No history of heat or cold intolerance, polyuria or polydipsia. EXTREMITIES: Denies muscle weakness, joint pain, pain on walking or stiffness. Physical Exam Physical Exam General: Alert, Oriented X3, Cooperative, mild distress. Cachectic appearing. HEENT: PERRLA, EOMI Lungs: Clear to auscultation, Normal air movement Heart: RRR, no murmurs Cardiovascular: S1, S2 Abdomen: Tight, distended abdomen. Abdominal tenderness. Extremities: No clubbing, No cyanosis Skin: No rashes, No significant lesion Neuro: Normal speech, Normal tone, Sensation intact Psych/Mental Status: Mental status NL, Mood NL Images Images PATIENT: AMARIS LOMBARDO ACCOUNT: [id number] : 1960 LOCATION: ER AGE: 61 SEX: M EXAM STATUS: REG ER ORD. PHYSICIAN: TESSY CABRERA DO REASON: distension, colostomy not working, hx cancer,OMNI 300 75ML PROCEDURE: CT ABD PELV W/ IV CONTRST ONLY Exam: CT of abdomen and pelvis with contrast INDICATION: Distention, colostomy not working TECHNIQUE: Sequential axial images through the abdomen and pelvis obtained following the administration of 75 mL of Omni 300 IV contrast. Sagittal and coronal reformatted images were reconstructed from the axial data and reviewed. Exposure: One or more of the following in the visualized dose reduction techniques were utilized for this examination: 1. Automated exposure control 2. Adjustment of the MA and/or KV according to patient size 3. Use of iterative of reconstructive technique Comparisons: 05/23/2021 FINDINGS: Heart size is normal. No pericardial effusion. Patchy airspace disease at the left lung base incompletely visualized. There are numerous hypoattenuating masses noted throughout the liver, largest is at the right hepatic lobe measuring approximately 4 cm in diameter. Spleen, pancreas, gallbladder and adrenals are unremarkable. \ No perinephric inflammation or hydronephrosis. No renal or ureteral calculi are identified. Within the pelvis there is a thick-walled air and fluid structure which could relate to the bladder. Prostate is not definitively seen. Postoperative changes of distal colectomy with a left lower quadrant colostomy. Moderate amount stool is noted throughout the colon. Postoperative changes are seen at the distal ileum. There is numerous dilated loops of fluid-filled small bowel throughout the abdomen. Decompressed loops of bowel are seen in the pelvis. A distinct transition point is not identified. Moderate amount of free fluid noted throughout the abdomen. No free intra-abdominal air. Enhancing soft tissue nodules noted in the lower abdomen adjacent to the superior wall of the bladder, ill-defined. Abdominal aorta has normal course and caliber. Abdominal vasculature is patent. There are numerous prominent and moderately enlarged mesenteric, retroperitoneal, bilateral inguinal lymph nodes noted. No suspicious osseous lesions or acute fractures. IMPRESSION: 1. Findings of small bowel obstruction with numerous dilated loops of small bowel. The bowel loops in the lower pelvis are decompressed without distinct transition point identified. 2. Findings of significant progression of disease with innumerable hypoattenuating masses throughout the liver. 3. There is likely also soft tissue implants on small bowel loops in the pelvis. 4. The bladder appears to have diffuse wall thickening with an air-fluid level. 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 5. Redemonstration of left lower lobe pulmonary nodules. VTE Prophylaxis Ordered VTE Prophylaxis Devices: No VTE Pharmacological Prophylaxi: Yes Assessment/Plan Assessment/Plan SBO Severe malnutrition History of colorectal cancer Plan: Will place NG tube to intermittent suction, continue with IV fluids. Consultation to general surgery IV pain medication Consider IV nutrition if no resolution of SBO within 3 to 4 days FEN - NPO PPX - Heparin FULL CODE/patient names a surrogate decision maker is his (Ernestine Lombardo) Dispo - inpatient for above Justifications for Admission Other Justification POOJA ABREU MD January 02, 2022 20:53
[2022-01-02] MEDS: HEPARIN for SUB-Q USE 5,000 UNIT/ML VIAL. SQ SCH (21:51)
--- NOTE | 2022-01-02 22:40 | NUR ---
NG successful on 3rd try. 100cc yellow/greenish thin drainage returned immediately.
[2022-01-02 23:08] VITALS: BP 102/68
[2022-01-03 03:00] VITALS: BP 100/64
[2022-01-03] MEDS: IV NORMAL SALINE 1000ML BAG 1,000 ML IV SCH ×4 (06:09→22:59)
[2022-01-03] MEDS: HEPARIN for SUB-Q USE 5,000 UNIT/ML VIAL. SQ SCH ×3 (06:09→22:56)
[2022-01-03 07:00] VITALS: BP 107/65
--- NOTE | 2022-01-03 08:23 | PDOC ---
[employer] PROGRESS NOTE Date of Service DOS: DATE: 01/03/22 TIME: 08:21 Chief Complaint Chief Complaint SBO Severe malnutrition History of colorectal cancer History of Present Illness History of Present Illness 01/03/2022 Patient seen and examined He has NG tube placed to low intermittent suction Discussed with RN Chart reviewed Vitals/I&O Vitals/I&O: Vital Signs Date Time Temp Pulse Resp B/P (MAP) Pulse Ox O2 Delivery O2 Flow Rate FiO2 01/03/22 07:00 97.5 68 14 107/65 (79) 95 Room Air 97.5 I & O 01/02/22 01/02/22 01/03/22 15:00 23:00 07:00 Intake Total 0 ml 890 ml Output Total 600 ml Balance 0 ml 290 ml Physical Exam General: Alert Heart: Regular rate Lungs: Clear Abdomen: Other (He has a left lower quadrant ostomy and a NG tube placed to low intermittent suction) Extremities: No clubbing Skin: No rashes Assessment and Plan Assessmemt and Plan SBO Severe malnutrition History of colorectal cancer Plan: Continue NG suctioning Appreciate subspecialist input Ostomy care Trend labs IV fluids Home meds when possible DVT prophylaxis Full code Long-term prognosis guarded FEN - NPO PPX - Heparin FULL CODE/patient names a surrogate decision maker is his (Ernestine Bennett) Dispo - inpatient for above Comment Review of Relevant I have reviewed the following items nori (where applicable) has been applied. Medications: Current Medications Medications (Trade) Dose Ordered Sig/Anne Route PRN Reason Start Time Stop Time Status Last Admin Dose Admin Morphine Sulfate (Morphine Sulfate) 5 mg PRN Q2HRS PRN IVP PAIN 01/02/22 20:45 01/02/22 21:45 Sodium Chloride 1,000 ml @ 100 mls/hr Q10H IV 01/02/22 20:45 01/03/22 06:09 Heparin Sodium (Porcine) (Heparin Sodium) 5,000 unit Q8HRS SQ 01/02/22 22:00 01/03/22 06:09 Lorazepam (Ativan Inj) 2 mg PRN Q4HRS PRN IVP ANXIETY / AGITATION 01/02/22 20:45 01/02/22 22:13 Justifications for Admission Other Justification JOSE MANUEL JUNIOR III DO January 03, 2022 08:23
--- NOTE | 2022-01-03 08:30 | NUR ---
spoke with patient, he states he uses [place] 2 [place] [id number] and pt does his own colostomy care.
[2022-01-03 11:00] VITALS: BP 104/65
--- NOTE | 2022-01-03 11:14 | PDOC2 ---
CONSULT Date of Consult Date of Consult DATE: 01/03/22 TIME: 11:07 Reason for Consult Reason for Consult: SBO Referring Physician Referring Physician: Dr. Christy Identification/Chief Complaint Chief Complaint abd pain and distention Source Source: Chart review, Patient History of Present Illness Reason for Visit: 61 yo M initially presented with obstructive symptoms in 2018. Underwent colonoscopy with stent. Pt subsequently underwent colectomy with colostomy, complicated by bladder injury. Pt continues to have urine drainage via rectal stump. Pt subsequently with bowel bypass for obstruction at in fall 2020. Pt now with no significant colostomy output for several days. C/o abd pain and distention. Pt has not previously undergone chemo. Past Medical History GI: Other (metastatic colon cancer) Past Surgical History Past Surgical History: Colectomy, Colon Resection Family History Family History: Cancer Social History 1 pack per day ALCOHOL: none Drugs: Marijuana Current Medications Current Medications Current Medications Morphine Sulfate (Morphine Sulfate) 5 mg PRN Q2HRS PRN IVP PAIN Last administered on 01/02/22at 21:45; Start 01/02/22 at 20:45 Fentanyl Citrate (Fentanyl 2ml Vial) 50 mcg PRN Q2HR PRN IVP PAIN; Start 01/02/22 at 20:45 Sodium Chloride 1,000 ml @ 100 mls/hr Q10H IV Last administered on 01/03/22at 06:09; Start 01/02/22 at 20:45 Ondansetron HCl (Zofran) 4 mg PRN Q6HRS PRN IVP NAUSEA/VOMITING; Start 01/02/22 at 20:45 Heparin Sodium (Porcine) (Heparin Sodium) 5,000 unit Q8HRS SQ Last administered on 01/03/22at 06:09; Start 01/02/22 at 22:00 Hydromorphone HCl (Dilaudid) 2 mg PRN Q4HRS PRN IVP PAIN; Start 01/02/22 at 20:45 Lorazepam (Ativan Inj) 2 mg PRN Q4HRS PRN IVP ANXIETY / AGITATION Last administered on 01/02/22at 22:13; Start 01/02/22 at 20:45 Active Scripts Active No Active Prescriptions or Reported Medications Allergies Allergies: Coded Allergies: tree nut (Verified Allergy, Severe, 05/24/21) Penicillins (Verified Allergy, Intermediate, 05/24/21) ROS Gastrointestinal: Yes Nausea, Yes Vomiting, Yes Abdominal Pain, Yes Constipation Physical Exam General: Alert, Oriented X3, Cooperative, No acute distress, Other (cachetic) HEENT: Atraumatic, Other (NGT in place) Abdomen: Other (distention, mild diffuse TTP, colostomy in place, min output) Vitals VITALS Vital Signs Date Time Temp Pulse Resp B/P (MAP) Pulse Ox O2 Delivery O2 Flow Rate FiO2 01/03/22 11:00 97.6 70 14 104/65 (78) 95 Room Air 97.[address] with SBO and extensive metastatic disease Assessment/Plan Assessment/Plan SBO, metastatic colon cancer given widely metastatic disease and suspected carcinomatosis, surgical intervention without benefit. Given cachexia and severe malnutrition, unlikely to tolerate any surgical intervention. Will ask oncology to comment. Would consider return to previous surgeon at , if pt wishes. Suspect terminal event and favor palliative care consult. Thanks for consult! ALEXANDREA MCDERMOTT MD January 03, 2022 11:14
[2022-01-03 15:00] VITALS: BP 111/69
[2022-01-03] MEDS: HYDROmorphone 2 MG/ML INJ. IVP PRN (15:18)
[2022-01-03 19:00] VITALS: BP 90/50
[2022-01-03 23:00] VITALS: BP_SYST 103; BP_SYST 92; BP_DIAS 51; BP_DIAS 61
[2022-01-04] MEDS: ONDANSETRON PF 4 MG/2 ML VIAL. IVP PRN ×2 (00:27→06:24)
[2022-01-04] MEDS: IV NORMAL SALINE 1000ML BAG 1,000 ML IV SCH ×3 (00:27→22:37)
[2022-01-04] MEDS: HYDROmorphone 2 MG/ML INJ. IVP PRN ×4 (00:28→22:45)
[2022-01-04 03:00] VITALS: BP 107/65
[2022-01-04] MEDS: HEPARIN for SUB-Q USE 5,000 UNIT/ML VIAL. SQ SCH ×3 (06:25→22:37)
[2022-01-04 07:00] VITALS: BP 99/62
[2022-01-04 07:20] LABS: BASO # 0.1 x10^3/uL (0.0-0.2); BASO % 1 % (0-3); EOS # 0.3 x10^3/uL (0.0-0.7); EOS % 4 % (0-3); HEMATOCRIT 31.8 % (39.0-53.0); HEMOGLOBIN 10.4 g/dL (13.0-17.5); LYMPH # 0.7 x10^3/uL (1.0-4.8); LYMPH % 11 % (24-48); MEAN CORPUSCULAR HEMOGLOBIN 30 pg (25-35); MEAN CORPUSCULAR HGB CONC 33 g/dL (31-37); MEAN CORPUSCULAR VOLUME 91 fL (79-100); MONO # 0.7 x10^3/uL (0.0-1.1); MONO % 10 % (0-9); NEUT # 5.2 x10^3/uL (1.8-7.7); NEUT % 74 % (31-73); PLATELET COUNT 575 x10^3/uL (140-400); RED BLOOD COUNT 3.49 x10^6/uL (4.30-5.70); RED CELL DISTRIBUTION WIDTH 13.9 % (11.5-14.5); WHITE BLOOD COUNT 6.9 x10^3/uL (4.0-11.0)
[2022-01-04 07:33] LABS: CALCIUM 8.5 mg/dL (8.5-10.1); CREATININE 1.2 mg/dL (0.7-1.3); GFR 61.8; POTASSIUM 4.2 mmol/L (3.5-5.1)
--- NOTE | 2022-01-04 09:53 | PDOC ---
[employer] PROGRESS NOTE Date of Service DOS: DATE: 01/04/22 TIME: 09:52 Chief Complaint Chief Complaint SBO Severe malnutrition History of colorectal cancer History of Present Illness History of Present Illness 01/04/2022 Patient seen and examined Discussed with RN Chart reviewed Discussed with case management He still has his NG to suction 01/03/2022 Patient seen and examined He has NG tube placed to low intermittent suction Discussed with RN Chart reviewed Vitals/I&O Vitals/I&O: Vital Signs Date Time Temp Pulse Resp B/P (MAP) Pulse Ox O2 Delivery O2 Flow Rate FiO2 01/04/22 07:44 Room Air 01/04/22 07:00 98.0 72 16 99/62 (74) 98 98.0 I & O 01/03/22 01/03/22 01/04/22 15:00 23:00 07:00 Output Total 300 ml 300 ml Balance -300 ml -300 ml Physical Exam General: Alert, Oriented X3, Cooperative, No acute distress, Other (cachetic) Heart: Regular rate Lungs: Clear Abdomen: Other (distention, mild diffuse TTP, colostomy in place, min output) Extremities: No clubbing Skin: No rashes Labs Labs: Laboratory Tests Test 01/04/22 06:30 White Blood Count 6.9 x10^3/uL (4.0-11.0) Red Blood Count 3.49 x10^6/uL (4.30-5.70) Hemoglobin 10.4 g/dL (13.0-17.5) Hematocrit 31.8 % (39.0-53.0) Mean Corpuscular Volume 91 fL (79-100) Mean Corpuscular Hemoglobin 30 pg (25-35) Mean Corpuscular Hemoglobin Concent 33 g/dL (31-37) Red Cell Distribution Width 13.9 % (11.5-14.5) Platelet Count 575 x10^3/uL (140-400) Neutrophils (%) (Auto) 74 % (31-73) Lymphocytes (%) (Auto) 11 % (24-48) Monocytes (%) (Auto) 10 % (0-9) Eosinophils (%) (Auto) 4 % (0-3) Basophils (%) (Auto) 1 % (0-3) Neutrophils # (Auto) 5.2 x10^3/uL (1.8-7.7) Lymphocytes # (Auto) 0.7 x10^3/uL (1.0-4.8) Monocytes # (Auto) 0.7 x10^3/uL (0.0-1.1) Eosinophils # (Auto) 0.3 x10^3/uL (0.0-0.7) Basophils # (Auto) 0.1 x10^3/uL (0.0-0.2) Sodium Level 141 mmol/L (136-145) Potassium Level 4.2 mmol/L (3.5-5.1) Chloride Level 102 mmol/L (98-107) Carbon Dioxide Level 26 mmol/L (21-32) Anion Gap 13 (6-14) Blood Urea Nitrogen 17 mg/dL (8-26) Creatinine 1.2 mg/dL (0.7-1.3) Estimated GFR (Cockcroft-Gault) 61.8 Glucose Level 44 mg/dL (70-99) Calcium Level 8.5 mg/dL (8.5-10.1) Assessment and Plan Assessmemt and Plan SBO Severe malnutrition History of colorectal cancer Plan: Continue NG suctioning Appreciate subspecialist input Ostomy care Trend labs IV fluids Home meds when possible DVT prophylaxis Full code Long-term prognosis guarded FEN - NPO PPX - Heparin FULL CODE/patient names a surrogate decision maker is his (Ernestine Bennett) Dispo - inpatient for above Comment Review of Relevant I have reviewed the following items nori (where applicable) has been applied. Justifications for Admission Other Justification JOSE MANUEL JUNIOR III DO January 04, 2022 09:53
--- NOTE | 2022-01-04 10:01 | PDOC2 ---
CONSULT Date of Consult Date of Consult DATE: 01/04/22 TIME: 09:52 Reason for Consult Reason for Consult: Metastatic colon cancer Referring Physician Referring Physician: Dr. Christy Identification/Chief Complaint Chief Complaint Abdominal pain Source Source: Chart review, Patient History of Present Illness Reason for Visit: Carlos Bennett is a 61-year-old male who has been admitted to [facility] with small bowel obstruction. He does have a history of rectal cancer for which he received chemoradiotherapy. Patient reports recent onset abdominal pain that has gradually worsened with associated nausea and vomiting. He went to the emergency room at [facility]. He received a CT which showed innumerable pulmonary and liver metastasis, small bowel obstruction and rectovesical fistula. He is known to me from a prior hospitalization for small bowel obstruction in May 2021. CT abdomen and pelvis obtained at the time showed a small bowel obstruction with transition point at the distal ileum just proximal to the ileocecal valve. A soft tissue nodule was noted in the pelvis causing obstruction. CT also showed rectal wall thickening, mesenteric lymph nodes as well as vague hypoattenuating lesion in the right hepatic lobe measuring 1.6 cm, left lower lobe pulmonary nodules. These findings were all reported to be concerning for metastatic disease. Due to complicated surgical history of prior colorectal cancer which was complicated by bladder injury, transfer to a facility with colorectal surgery our surgical oncology and urology expertise was recommended. The patient did not want to return to [facility] due to satisfaction with prior care that was provided. He was eventually transferred to . I counseled the patient during that hospital stay regarding the CT finding of liver metastasis and likely finding of metastatic colon cancer. Provided contact information and set up office follow-up for discussion of chemotherapy. He did not return for these appointments He states following his hospital discharge in May 2021, he has not sought any health care until his recent development of abdominal pain. He is interested in surgery to remove the tumor. Discussed CT results with him and discussed that he has unresectable disease at this time given multifocal liver metastasis. Past Medical History GI: Other (metastatic colon cancer) Past Surgical History Past Surgical History: Colectomy, Colon Resection Family History Family History: Cancer Social History 1 pack per day ALCOHOL: none Drugs: Marijuana Current Medications Current Medications Current Medications Morphine Sulfate (Morphine Sulfate) 5 mg PRN Q2HRS PRN IVP PAIN Last administered on 01/02/22at 21:45; Start 5/3/22 at 20:45 Fentanyl Citrate (Fentanyl 2ml Vial) 50 mcg PRN Q2HR PRN IVP PAIN; Start 01/02/22 at 20:45 Sodium Chloride 1,000 ml @ 100 mls/hr Q10H IV Last administered on 01/04/22at 00:27; Start 01/02/22 at 20:45 Ondansetron HCl (Zofran) 4 mg PRN Q6HRS PRN IVP NAUSEA/VOMITING Last administered on 01/04/22at 06:24; Start 01/02/22 at 20:45 Heparin Sodium (Porcine) (Heparin Sodium) 5,000 unit Q8HRS SQ Last administered on 01/04/22 06:25; Start 01/02/22 at 22:00 Hydromorphone HCl (Dilaudid) 2 mg PRN Q4HRS PRN IVP PAIN Last administered on 01/04/22at 06:24; Start 01/02/22 at 20:45 Lorazepam (Ativan Inj) 2 mg PRN Q4HRS PRN IVP ANXIETY / AGITATION Last administered on 01/02/22at 22:13; Start 01/02/22 at 20:45 Active Scripts Active No Active Prescriptions or Reported Medications Allergies Allergies: Coded Allergies: tree nut (Verified Allergy, Severe, 05/24/21) Penicillins (Verified Allergy, Intermediate, 05/24/21) ROS Review of System Negative unless stated otherwise in HPI Physical Exam Physical Exam General: Awake, alert, no distress Head: Atraumatic, no conjunctival icterus, normal oral cavity mucosa Neck: Supple, no lymphadenopathy Chest: No trauma noted Cardiovascular: Regular rhythm, normal rate, no murmurs Respiratory: Bilateral air entry noted, lungs clear to auscultation bilaterally. No accessory muscle use Abdominal: Abdomen is soft, nontender, nondistended. Bowel sounds were normal. No hepatomegaly or splenomegaly Musculoskeletal: No deformity noted Extremities: No edema noted Skin: No rash or lesions Neurologic: Alert and oriented x3, no grossly evident neurologic deficits noted. Full neurological exam was not performed Psychiatric: Appropriate mood and affect Vitals VITALS Vital Signs Date Time Temp Pulse Resp B/P (MAP) Pulse Ox O2 Delivery O2 Flow Rate FiO2 01/04/22 07:44 Room Air 01/04/22 07:00 98.0 72 16 99/62 (74) 98 98.0 Labs Labs Laboratory Tests Test 01/04/22 06:30 White Blood Count 6.9 x10^3/uL (4.0-11.0) Red Blood Count 3.49 x10^6/uL (4.30-5.70) Hemoglobin 10.4 g/dL (13.0-17.5) Hematocrit 31.8 % (39.0-53.0) Mean Corpuscular Volume 91 fL (79-100) Mean Corpuscular Hemoglobin 30 pg (25-35) Mean Corpuscular Hemoglobin Concent 33 g/dL (31-37) Red Cell Distribution Width 13.9 % (11.5-14.5) Platelet Count 575 x10^3/uL (140-400) Neutrophils (%) (Auto) 74 % (31-73) Lymphocytes (%) (Auto) 11 % (24-48) Monocytes (%) (Auto) 10 % (0-9) Eosinophils (%) (Auto) 4 % (0-3) Basophils (%) (Auto) 1 % (0-3) Neutrophils # (Auto) 5.2 x10^3/uL (1.8-7.7) Lymphocytes # (Auto) 0.7 x10^3/uL (1.0-4.8) Monocytes # (Auto) 0.7 x10^3/uL (0.0-1.1) Eosinophils # (Auto) 0.3 x10^3/uL (0.0-0.7) Basophils # (Auto) 0.1 x10^3/uL (0.0-0.2) Sodium Level 141 mmol/L (136-145) Potassium Level 4.2 mmol/L (3.5-5.1) Chloride Level 102 mmol/L (98-107) Carbon Dioxide Level 26 mmol/L (21-32) Anion Gap 13 (6-14) Blood Urea Nitrogen 17 mg/dL (8-26) Creatinine 1.2 mg/dL (0.7-1.3) Estimated GFR (Cockcroft-Gault) 61.8 Glucose Level 44 mg/dL (70-99) Calcium Level 8.5 mg/dL (8.5-10.1) Laboratory Tests Test 01/04/22 06:30 White Blood Count 6.9 x10^3/uL (4.0-11.0) Red Blood Count 3.49 x10^6/uL (4.30-5.70) Hemoglobin 10.4 g/dL (13.0-17.5) Hematocrit 31.8 % (39.0-53.0) Mean Corpuscular Volume 91 fL (79-100) Mean Corpuscular Hemoglobin 30 pg (25-35) Mean Corpuscular Hemoglobin Concent 33 g/dL (31-37) Red Cell Distribution Width 13.9 % (11.5-14.5) Platelet Count 575 x10^3/uL (140-400) Neutrophils (%) (Auto) 74 % (31-73) Lymphocytes (%) (Auto) 11 % (24-48) Monocytes (%) (Auto) 10 % (0-9) Eosinophils (%) (Auto) 4 % (0-3) Basophils (%) (Auto) 1 % (0-3) Neutrophils # (Auto) 5.2 x10^3/uL (1.8-7.7) Lymphocytes # (Auto) 0.7 x10^3/uL (1.0-4.8) Monocytes # (Auto) 0.7 x10^3/uL (0.0-1.1) Eosinophils # (Auto) 0.3 x10^3/uL (0.0-0.7) Basophils # (Auto) 0.1 x10^3/uL (0.0-0.2) Sodium Level 141 mmol/L (136-145) Potassium Level 4.2 mmol/L (3.5-5.1) Chloride Level 102 mmol/L (98-107) Carbon Dioxide Level 26 mmol/L (21-32) Anion Gap 13 (6-14) Blood Urea Nitrogen 17 mg/dL (8-26) Creatinine 1.2 mg/dL (0.7-1.3) Estimated GFR (Cockcroft-Gault) 61.8 Glucose Level 44 mg/dL (70-99) Calcium Level 8.5 mg/dL (8.5-10.1) Assessment/Plan Assessment/Plan Assessment: Metastatic rectal cancer Liver metastasis Small bowel obstruction Rectovesical fistula Failure to thrive History of iatrogenic bladder injury during surgery Normocytic anemia Recommendations: -I reviewed results of CT obtained at [facility] with the patient. Discussed that given multifocal pulmonary and liver metastasis, he has uncurable disease -We discussed the goals of treatment and advanced colon cancer. Discussed that palliative chemotherapy can improve quality of life and prolong life. Discussed that at current time the risks of chemotherapy significantly outweigh any potential benefits. Recommended against chemotherapy at this time. We also discussed hospice as an option. -He is interested in discussing surgical options for small bowel obstruction including diverting ostomy. -Management of SBO per surgery service -Rest per primary team Zhou Vyas MD Medical Oncology/Hematology Ph: [phone] NICOLE VYAS MD January 04, 2022 10:01
[2022-01-04 11:00] VITALS: BP 100/55
--- NOTE | 2022-01-04 11:57 | PDOC ---
SURGICAL PROGRESS NOTE DATE: 01/04/22 TIME: 11:54 Subjective wants to continue discussion of possible surgical intervention reviewed oncology note pt not interested in returning to surgeon Vital Signs Vital Signs Date Time Temp Pulse Resp B/P (MAP) Pulse Ox O2 Delivery O2 Flow Rate FiO2 01/04/22 11:00 97.4 60 16 100/55 (70) 98 Room Air 97.4 I&O Intake and Output 01/04/22 07:00 Output Total 600 ml Balance -600 ml Output Urine Total 100 ml Gastric Drainage Total 500 ml General: Cooperative, No acute distress HEENT: Other (NG in place) Labs Laboratory Tests Test 01/04/22 06:30 White Blood Count 6.9 x10^3/uL (4.0-11.0) Red Blood Count 3.49 x10^6/uL (4.30-5.70) Hemoglobin 10.4 g/dL (13.0-17.5) Hematocrit 31.8 % (39.0-53.0) Mean Corpuscular Volume 91 fL (79-100) Mean Corpuscular Hemoglobin 30 pg (25-35) Mean Corpuscular Hemoglobin Concent 33 g/dL (31-37) Red Cell Distribution Width 13.9 % (11.5-14.5) Platelet Count 575 x10^3/uL (140-400) Neutrophils (%) (Auto) 74 % (31-73) Lymphocytes (%) (Auto) 11 % (24-48) Monocytes (%) (Auto) 10 % (0-9) Eosinophils (%) (Auto) 4 % (0-3) Basophils (%) (Auto) 1 % (0-3) Neutrophils # (Auto) 5.2 x10^3/uL (1.8-7.7) Lymphocytes # (Auto) 0.7 x10^3/uL (1.0-4.8) Monocytes # (Auto) 0.7 x10^3/uL (0.0-1.1) Eosinophils # (Auto) 0.3 x10^3/uL (0.0-0.7) Basophils # (Auto) 0.1 x10^3/uL (0.0-0.2) Sodium Level 141 mmol/L (136-145) Potassium Level 4.2 mmol/L (3.5-5.1) Chloride Level 102 mmol/L (98-107) Carbon Dioxide Level 26 mmol/L (21-32) Anion Gap 13 (6-14) Blood Urea Nitrogen 17 mg/dL (8-26) Creatinine 1.2 mg/dL (0.7-1.3) Estimated GFR (Cockcroft-Gault) 61.8 Glucose Level 44 mg/dL (70-99) Calcium Level 8.5 mg/dL (8.5-10.1) Laboratory Tests Test 01/04/22 06:30 White Blood Count 6.9 x10^3/uL (4.0-11.0) Red Blood Count 3.49 x10^6/uL (4.30-5.70) Hemoglobin 10.4 g/dL (13.0-17.5) Hematocrit 31.8 % (39.0-53.0) Mean Corpuscular Volume 91 fL (79-100) Mean Corpuscular Hemoglobin 30 pg (25-35) Mean Corpuscular Hemoglobin Concent 33 g/dL (31-37) Red Cell Distribution Width 13.9 % (11.5-14.5) Platelet Count 575 x10^3/uL (140-400) Neutrophils (%) (Auto) 74 % (31-73) Lymphocytes (%) (Auto) 11 % (24-48) Monocytes (%) (Auto) 10 % (0-9) Eosinophils (%) (Auto) 4 % (0-3) Basophils (%) (Auto) 1 % (0-3) Neutrophils # (Auto) 5.2 x10^3/uL (1.8-7.7) Lymphocytes # (Auto) 0.7 x10^3/uL (1.0-4.8) Monocytes # (Auto) 0.7 x10^3/uL (0.0-1.1) Eosinophils # (Auto) 0.3 x10^3/uL (0.0-0.7) Basophils # (Auto) 0.1 x10^3/uL (0.0-0.2) Sodium Level 141 mmol/L (136-145) Potassium Level 4.2 mmol/L (3.5-5.1) Chloride Level 102 mmol/L (98-107) Carbon Dioxide Level 26 mmol/L (21-32) Anion Gap 13 (6-14) Blood Urea Nitrogen 17 mg/dL (8-26) Creatinine 1.2 mg/dL (0.7-1.3) Estimated GFR (Cockcroft-Gault) 61.8 Glucose Level 44 mg/dL (70-99) Calcium Level 8.5 mg/dL (8.5-10.1) Assessment/Plan will have Dr Stephen BAKER, however unsure there are surgical options at this point Justicifation of Admission Dx: Justifications for Admission: Justification of Admission Dx: Yes SHADI JERONIMO E LEARNING COORDINATOR January 04, 2022 11:57
[2022-01-04 15:00] VITALS: BP 100/59
[2022-01-04 19:00] VITALS: BP 104/55
[2022-01-04 23:28] VITALS: BP 103/61
[2022-01-05 03:00] VITALS: BP 102/59
[2022-01-05] MEDS: IV NORMAL SALINE 1000ML BAG 1,000 ML IV SCH (05:39)
[2022-01-05] MEDS: HEPARIN for SUB-Q USE 5,000 UNIT/ML VIAL. SQ SCH ×2 (05:42→14:00)
[2022-01-05] MEDS: HYDROmorphone 2 MG/ML INJ. IVP PRN ×2 (06:03→11:21)
[2022-01-05 07:00] VITALS: BP 94/54
--- NOTE | 2022-01-05 10:40 | PDOC ---
[facility] PROGRESS NOTE Date of Service DOS: DATE: 01/05/22 TIME: 10:33 Chief Complaint Chief Complaint SBO Severe malnutrition History of colorectal cancer History of Present Illness History of Present Illness 01/05/2022 Patient seen and examined Discussed with case management Discussed with RN Chart reviewed Discussed with general surgery nurse practitioner She contacted Dr. Mitchell, apparently there are no surgical options I suspect he needs hospice but he is not receptive to this 01/04/2022 Patient seen and examined Discussed with RN Chart reviewed Discussed with case management He still has his NG to suction 01/03/2022 Patient seen and examined He has NG tube placed to low intermittent suction Discussed with RN Chart reviewed Vitals/I&O Vitals/I&O: Vital Signs Date Time Temp Pulse Resp B/P (MAP) Pulse Ox O2 Delivery O2 Flow Rate FiO2 01/05/22 07:49 Room Air 01/05/22 07:00 98.1 68 18 94/54 (67) 98 98.1 I & O 01/04/22 01/04/22 01/05/22 15:00 23:00 07:00 Output Total 300 ml Balance -300 ml Physical Exam General: Cooperative, No acute distress Heart: Regular rate Lungs: Clear Abdomen: Other (distention, mild diffuse TTP, colostomy in place, min output) Extremities: No clubbing Skin: No rashes Assessment and Plan Assessmemt and Plan SBO Severe malnutrition History of colorectal cancer Plan: I suspect he qualifies for hospice but he is not receptive to this He wants me to begin his discharge paperwork however his NG is still to suction and I think he will start vomiting I called his nurse and discussed the situation For now continue the following; Continue NG suctioning Appreciate subspecialist input Ostomy care Trend labs IV fluids Home meds when possible DVT prophylaxis Full code Long-term prognosis guarded but probably terminal FEN - NPO PPX - Heparin FULL CODE/patient names a surrogate decision maker is his (Ernestine Bennett) Comment Review of Relevant I have reviewed the following items nori (where applicable) has been applied. Justifications for Admission Other Justification JOSE MANUEL JUINOR III DO January 05, 2022 10:40
[2022-01-05 11:00] VITALS: BP 112/60
--- NOTE | 2022-01-05 11:08 | NUR ---
Pt. stated he wants to d/c home today. He stated he understands this cancer is terminal and he is requesting to go home today to do "holistic methods". Pt. is asking for IV to be taken out and for NG to be removed just prior to his leaving. Dr. Christy paged for d/c orders.
--- NOTE | 2022-01-05 11:18 | SNU/HH DC ---
DISCHARGE WITH HOME HEALTH DISCHARGE INFORMATION: Condition on Discharge: Stable CODE STATUS: Code Status: Full HOME HEALTH: Face to Face: I certify this patient is under my care and that I, or a nurse practitioner or physician's registered nurse first assistant working with me, had a face to face encounter that meets the physician face to face encounter requirements with this patient on []. Medical Complications: Other (colon ca) Penitentiary For: Assess & Educate Safety RN For Eval/Treatment: Yes Physical Therapy For: Evalulation/Treatment Occupational Therapy For: Evaluation/Treatment Home Health Aide For: Self-care INSIDE CHANNEL ACCOUNT MANAGER For: Community Resources Pt Meets Homebound Status: Poor coordination w/ amb. POST DISCHARGE ORDERS: Activity Instructions for Disc: No restrictions Weight Bearing Status after Di: No restrictions DIET AFTER DISCHARGE: cld TREATMENT/EQUIPMENT ORDERS: Adaptive Equipment Issued: None CERTIFICATION STATEMENT: Certification Statement: Certification Statement: Based on the above finding, I certify that this patient is confined to the home and needs intermittent shelter care, physical therapy and/or speech therapy, or continues to need occupational therapy.~ This patient is under my care, and I have initiated the establishment of the plan of care.~ This patient will be followed by myself or a community physician who will periodically review the plan of care. Home Meds No Active Prescriptions or Reported Meds JOSE MANUEL JUNIOR III DO January 05, 2022 11:18
[2022-01-05] MEDS: ONDANSETRON PF 4 MG/2 ML VIAL. IVP PRN (11:20)
--- NOTE | 2022-01-05 11:26 | NUR ---
Pt. offered outpatient resources such as home health, pt declined at this time. Pt. also stated all he would need would be pain control and pt understands he is to follow up with his PCP for that. Dr. Christy aware of pt's decisions. FABIENNE Gastelum on the unit and notified of pt's decision to d/c home today.
--- NOTE | 2022-01-05 11:50 | NUR ---
[facility] called for cab for pt to go home.
--- NOTE | 2022-01-05 13:07 | PDOC ---
SURGICAL PROGRESS NOTE DATE: 01/05/22 TIME: 13:05 Subjective Pt requests d/c, understand disease is terminal, NGT is out Vital Signs Vital Signs Date Time Temp Pulse Resp B/P (MAP) Pulse Ox O2 Delivery O2 Flow Rate FiO2 01/05/22 12:01 Room Air 01/05/22 11:00 98.4 66 16 112/60 (77) 94 98.4 I&O Intake and Output 01/05/22 07:00 Output Total 300 ml Balance -300 ml Gastric Drainage Total 300 ml # Voids 2 General: Alert, Oriented X3, Cooperative, No acute distress, Other (thin) Abdomen: Soft, Other (distended, mild TTP) Labs Laboratory Tests Test 01/04/22 06:30 White Blood Count 6.9 x10^3/uL (4.0-11.0) Red Blood Count 3.49 x10^6/uL (4.30-5.70) Hemoglobin 10.4 g/dL (13.0-17.5) Hematocrit 31.8 % (39.0-53.0) Mean Corpuscular Volume 91 fL (79-100) Mean Corpuscular Hemoglobin 30 pg (25-35) Mean Corpuscular Hemoglobin Concent 33 g/dL (31-37) Red Cell Distribution Width 13.9 % (11.5-14.5) Platelet Count 575 x10^3/uL (140-400) Neutrophils (%) (Auto) 74 % (31-73) Lymphocytes (%) (Auto) 11 % (24-48) Monocytes (%) (Auto) 10 % (0-9) Eosinophils (%) (Auto) 4 % (0-3) Basophils (%) (Auto) 1 % (0-3) Neutrophils # (Auto) 5.2 x10^3/uL (1.8-7.7) Lymphocytes # (Auto) 0.7 x10^3/uL (1.0-4.8) Monocytes # (Auto) 0.7 x10^3/uL (0.0-1.1) Eosinophils # (Auto) 0.3 x10^3/uL (0.0-0.7) Basophils # (Auto) 0.1 x10^3/uL (0.0-0.2) Sodium Level 141 mmol/L (136-145) Potassium Level 4.2 mmol/L (3.5-5.1) Chloride Level 102 mmol/L (98-107) Carbon Dioxide Level 26 mmol/L (21-32) Anion Gap 13 (6-14) Blood Urea Nitrogen 17 mg/dL (8-26) Creatinine 1.2 mg/dL (0.7-1.3) Estimated GFR (Cockcroft-Gault) 61.8 Glucose Level 44 mg/dL (70-99) Calcium Level 8.5 mg/dL (8.5-10.1) Assessment/Plan metastatic colon cancer no good surgical options, given carcinomatosis, widely metastatic disease and severe malnutrition pt interested in d/c Justicifation of Admission Dx: Justifications for Admission: Justification of Admission Dx: Yes ALEXANDREA MCDERMOTT MD January 05, 2022 13:07
--- NOTE | 2022-01-05 13:29 | NUR ---
[facility] called again re: status of cab for pt to go home.
--- NOTE | 2022-01-05 14:47 | NUR ---
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 Pt. still waiting in his room. [facility] stated they are awaiting the next available car.
--- NOTE | 2022-01-05 16:20 | NUR ---
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 They stated they could not find the initial reservation. They stated they would send the next available car.
--- NOTE | 2022-01-05 17:20 | NUR ---
Pt discharged to home, verbalized understanding of discharge instructions.
--- NOTE | 2022-01-06 22:19 | DS ---
DATE OF DISCHARGE: 01/05/2022 ADMISSION DIAGNOSIS: Small bowel obstruction with metastatic colorectal cancer with liver mets, rectovesical fistula, failure to thrive, history of iatrogenic bladder injury during surgery, history of normocytic anemia. CONSULTS: General Surgery and Oncology. HOSPITAL COURSE: The patient is a pleasant middle-aged male who has a history of colorectal cancer and basically presented with obstruction. He has got an ostomy. We placed an NG to suction and the above consults were obtained. No surgical intervention could be undertaken. I suspect he probably needs hospice. Yesterday I explained this to him. He decided to leave against medical advice. NIKKI/DONNA/SAMUEL DR: NIKKI/isabelle TID: [id number]
== END 2022-01-05 17:41 | disposition home or self-care (01) | DRG 388 ==
LOC: 4 NORTH 20:19
PROVIDERS: ADMIT Family Medicine; ATTEND Family Medicine
PROC: 0D9670Z Drainage of Stomach with Drainage Device, Via Natural or Artificial Opening (ICD-10-PCS; principal; 2022-01-02)
DX: K56.609 Unspecified intestinal obstruction, unspecified as to partial versus complete obstruction (principal); E43 Unspecified severe protein-calorie malnutrition; C78.7 Secondary malignant neoplasm of liver and intrahepatic bile duct; C20 Malignant neoplasm of rectum; C19 Malignant neoplasm of rectosigmoid junction; N32.1 Vesicointestinal fistula; Z68.1 Body mass index [BMI] 19.9 or less, adult; D64.9 Anemia, unspecified; F17.210 Nicotine dependence, cigarettes, uncomplicated; R62.7 Adult failure to thrive; Z85.048 Personal history of other malignant neoplasm of rectum, rectosigmoid junction, and anus; Z90.49 Acquired absence of other specified parts of digestive tract; Z93.3 Colostomy status; Z88.0 Allergy status to penicillin; Z91.018 Allergy to other foods
CPT/HCPCS: 36415; 80048; 85025; J1170; J1644; J2060; J2270; J2405; J7030; G0378